=== PATIENT | female | born 2000 | race African-American/Black ===

== ENCOUNTER 2023-09-12 21:26 | Emergency (ER) | payer BC, OTHER, SELFPAY ==
[2023-09-12 21:27] VITALS: BP 120/96
[2023-09-12 21:43] LABS: % Basophils 0.6 % (0-2); % Eosinophils 0.4 % (0-6); % Immature Granulocytes 0.4 % (0-0.5); % Lymphocytes 17.1 % (20.5-51.1); % Neutrophils 74.5 % (42.2-75.2); Absolute Lymphocytes 0.9 10^3/uL (1.2-3.4); Absolute Monocytes 0.4 10^3/uL (0.1-0.6); Hematocrit 38.1 % (37.0-47.0); Hemoglobin 12.5 g/dL (12.0-16.0); Mean Corp Hgb Conc. 32.8 g/dL (33.0-37.0); Mean Corpuscular Hgb 22.4 pg (27.0-31.0); Mean Corpuscular Volume 68.3 fL (81.0-99.0); Mean Platelet Volume 9.7 fL (7.4-10.4); Nucleated Red Blood Cells % 0 %; Platelet Count 272 10^3/uL (130-400); Red Blood Cell Count 5.58 10^6/uL (4.20-5.40); Red Cell Dist. Width 14.1 % (11.5-14.5); Urine Albumin Negative (Neg - Trace); Urine Bilirubin 1+ (Negative); Urine Character Clear (Clear); Urine Color Yellow; Urine Glucose Negative (Negative); Urine Ketone Negative (Negative); Urine Leukocyte Trace (Negative); Urine Nitrite Negative (Negative); Urine Occult Blood 1+ (Negative); Urine Urobilinogen Negative (Neg - 1+); White Blood Cell Count 5.3 10^3/uL (4.8-10.8)
[2023-09-12 21:48] LABS: Urine Squamous Cell >30 /LPF (Few)
[2023-09-12 21:49] LABS: Urine White Cell 0-2 /HPF (0-5)
[2023-09-12 21:58] LABS: HCG, Serum Qualitative Screen Negative
[2023-09-12 22:08] LABS: ALT (SGPT) 18 U/L (0-35); AST (SGOT) 19 U/L (14-36); Albumin 4.1 g/dl (3.5-5.0); Alkaline Phosphatase 59 U/L (38-126); Blood Urea Nitrogen 12 mg/dl (7-17); Carbon Dioxide 23 mmol/L (22-30); Chloride 103 mmol/L (98-107); Glucose 97 mg/dl (70-99); Potassium 4.1 mmol/L (3.5-5.1); Sodium 136 mmol/L (135-145); Total Bilirubin 0.8 mg/dl (0.2-1.3); Total Protein 7.4 g/dl (6.3-8.2); eGFR > 60.00
[2023-09-12 22:13] LABS: Lipase 72 U/L (23-300)
[2023-09-13 00:09] VITALS: BP 113/82
--- NOTE | 2023-09-13 00:49 | ED.GENMED ---
History of Present Illness
General
Chief Complaint: Abdominal Symptoms
Source: patient
Exam Limitations: none
Time Seen by Provider: 09/12/23 23:55
Travel History
Have you had any contact with someone who has COVID-19?: No
Do you have any symptoms of coronavirus? Fever > 100 degrees, chills, cough, shortness of breath, sore throat, loss of taste or smell, muscle aches, or headache?: No
History of Present Illness
History of Present Illness:
This is a 23 year old female that comes in with c/o with c/o abd pain. nausea, vomiting and diarrhea. States that she came back from [facility] on Sunday. Then today she started with abd pain, nausea, vomiting and diarrhea. States that she has a
headache and felt dizzy earlier. States that she hasn't eat and has not been able to keep fluids down. Denies any fever, chills, chest pain, SOB, urinary burning.
Past History
Past History
ED Past Medical History: None; Negative Asthma, HTN, Hypercholesterolemia or NIDDM
ED Past Surgical History: None
Social History
Tobacco: Non-smoker
Alcohol: Occasional
Personal: Single
Living: with family
Review of Systems
Review of Systems
All Other Systems: ROS reviewed and negative except as documented in HPI and ROS
Constitutional: Reports no symptoms; Denies fever or chills
EENT: Reports no symptoms
Respiratory: Denies cough or trouble breathing
Cardiac: Reports no symptoms; Denies chest pain
ABD/GI: Reports abdominal pain, nausea, vomiting and diarrhea
: Reports no symptoms; Denies dysuria, frequency or urgency
Musculoskeletal: Reports no symptoms
Skin: Reports no symptoms
Neurological: Reports dizzy and headache
Psychiatric: Reports no symptoms
Phy Exam
General Physical Exam
General Presentation: well appearing and no apparent distress
General age: appears stated age
General Skin: warm and dry
General Habitus: normal
General Mental: alert
General Hydration: appears well hydrated
ENT Exam
ENT Exam: TM's normal, pharynx normal and neck supple
Eye Exam
Eye Exam: EOMI
Cardiovascular Exam
Cardiovascular Exam: regular rate/rhythm, no edema, no murmur and normal peripheral pulses
Pulmonary Exam
Pulmonary Exam: lungs clear, no respiratory distress, no rales, chest non tender, no crackles, no rhonchi, no wheezing and no cough
Gastrointestinal Exam
Gastrointestinal Exam: normal bowel sounds, soft, no organomegaly, no pulsatile mass, non distended and tender (Generalized tenderness with palpation)
Musculoskeletal Exam
Musculoskeletal Exam: full ROM and no edema
Skin Exam
Skin Exam: normal color, warm/dry, no rash and no petechia
Psychiatric Exam
Psychiatric Exam: normal mood/affect
Course
Orders/Labs/Results
Orders:
Orders
09/12/23 21:30
Test Result ONCE
09/12/23 21:36
Complete Blood Count/With Diff Urgent
Comprehensive Metabolic Panel Urgent
HCG, Serum Qualitative Screen Urgent
Lipase Urgent
Urinalysis Reflex To Culture Urgent
Date Specimen was Collected: 09/12/23
Time Specimen was Collected: 21:30
Urine Microscopic Reflex Cult Urgent
09/13/23 00:49
0.9% Sodium Chloride 1000 ml [Nss] 1,000 ml IV BOLUS
Dicyclomine HCl [Bentyl] 20 mg IM NOW STA
Ondansetron Injectable [Zofran] 4 mg IV NOW STA
09/13/23 00:53
Ketorolac [Toradol] 30 mg IV NOW STA
09/13/23 00:54
Pantoprazole [Protonix IV] 40 mg IV NOW STA
Abnormal Lab Results
09/12/23
21:36
RBC 5.58 H 10^6/uL
(4.20-5.40)
MCV 68.3 L fL
(81.0-99.0)
MCH 22.4 L pg
(27.0-31.0)
MCHC 32.8 L g/dL
(33.0-37.0)
Absolute Lymphs (auto) 0.9 L 10^3/uL
(1.2-3.4)
Lymphocytes % 17.1 L %
(20.5-51.1)
Ur Occult Blood Reflex 1+ A
(Negative)
Urine Bilirubin 1+ A
(Negative)
Leukocyte Esterase Rfl Trace A
(Negative)
Urine RBC 7-10 A /HPF
(0-2)
09/12/23 21:36
09/12/23 21:36
Urine negative for infection. Anemia, HCG negative.
Vital Signs
Initial and Last Documented VS:
Initial Vital Signs
Temp Pulse Resp BP Pulse Ox
98.3 F 97 18 120/96 99
09/12/23 21:27 09/12/23 21:27 09/12/23 21:27 09/12/23 21:27 09/12/23 21:27
Last Documented Vital Signs
Temp Pulse Resp BP Pulse Ox
98.6 F 91 18 113/82 99
09/13/23 00:09 09/13/23 00:09 09/12/23 21:27 09/13/23 00:09 09/13/23 00:09
MDM/Problems Addressed
Differential Diagnosis Includes:
Viral GI syndrome. Travelers Diarrhea,
MDM/Problems Addressed:
This is a 23 year old female that comes in with c/o nausea, vomiting, and diarrhea. States that she also has abd pain. Patient was on [place] and returned on Sunday. Today she stared with the abd pain, nausea, vomiting, and diarrhea.
Will check labs and medicate. Will give IV fluids.
Back into see patient. States that she is feeling a little better. Explained that this could be the viral GI syndrome that is going around or this could be Travelers diarrhea. Will give patient a prescription for nausea. Patient can use Imodium for
the diarrhea. Patient to follow up with the family doctor. Return with any concerns.
Chronic conditions affecting care:
NA
Acute Exacerbation and/or Progression of Chronic Illness:
NA
*Pulse Oximetry
Patient hypoxic: no
*EKG
Interpreted by ED Provider?: NA
Rate: EKG- N/A
*Research Affiliate Interpretation
Rate: Research Affiliate- N/A
*Critical Care Note
Total Time (30-74mins, 75-104mins- exclusive of procedures): Not Applicable
ED Attending Note
-
Portions of this chart may have been created with voice recognition software.� Occasional wrong word or��sound alike� substitutions may have occurred due to the inherent limitations of voice recognition software.
Discharge Plan
Departure
Patient Disposition: Home (Routine Discharge)
Date of Disposition: 09/13/23
Time of Disposition: 02:25
Patient with high blood pressure during this ER visit?: No
Condition: Good
Covid-19: Not Applicable
Discharge Problem:
Nausea & vomiting, Diarrhea
Instructions: Diarrhea in adolescents and adults, Nausea and Vomiting, Adult (DC)
Prescriptions:
New
ondansetron 4 mg tablet,disintegrating
4 mg PO Q8H PRN (Reason: nausea and vomiting) Qty: 7 0RF
Referrals:
Sandoval Kirby MD [Family Provider] - Call in 1-3 days for appt
Activity Restrictions/Additional Instructions:
As discussed, your blood work shows slight anemia. Your Urine is negative for infection. This is most likely a viral illness. You have been given a prescription for Zofran to help with any nausea/vomiting. You may use Imodium for any further
diarrhea. Follow up with the family doctor as needed. Please increase your water intake to 8-8oz glasses daily. Stay away form Milk and milk products until the diarrhea stops as this is hard for the gut to digest. Simple foods such as chicken,
rice and potatoes are easily digested. IF YOU HAVE ANY OTHER CONCERNS PLEASE RETURN TO THE EMERGENCY ROOM.
Interventions
Interventions:
*Risk Screen - Suicide Last Done: 09/12/23 21:27
*General Assessment Last Done: 09/12/23 21:27
*Neglect/Abuse Screening Last Done: 09/12/23 21:27
[2023-09-13] MEDS: NSS 1000 IV (01:11)
[2023-09-13] MEDS: PROTONIX IV 40 MG IV (01:11)
[2023-09-13] MEDS: ZOFRAN 4 MG IV (01:11)
[2023-09-13] MEDS: BENTYL 20 MG IM (01:12)
[2023-09-13] MEDS: TORADOL 30 MG IV (01:12)
== END 2023-09-13 02:47 | disposition home or self-care (01) ==
LOC: EMR 21:26
PROVIDERS: Emergency Medicine; EMERGENCY PHYSICIAN Emergency Medicine; FAMILY PHYSICIAN Internal Medicine
DX: R11.2 Nausea with vomiting, unspecified (principal); R19.7 Diarrhea, unspecified; R10.9 Unspecified abdominal pain; R51.9 Headache, unspecified; R42 Dizziness and giddiness
CPT/HCPCS: 99284; 96374; 96375 ×2; 96361; 96372; 80053; 81003; 81015; 83690; 84703; 85025